=== PATIENT | female | born 1985 | race Hispanic/Latino ===

== ENCOUNTER 2017-10-02 07:10 | Emergency (ER) | payer BC ==
[2017-10-02] MEDS ORDERED: Acetaminophen 500 MG TAB ONE (07:43)
[2017-10-02] MEDS ORDERED: Ibuprofen 800 MG TAB ONE (07:43)
== END 2017-10-02 07:45 | disposition home or self-care (01) ==
LOC: ERS 07:10
DX: B34.9 Viral infection, unspecified (principal)
CPT/HCPCS: 87081; 87430; 99283

== ENCOUNTER 2019-02-23 20:40 | Emergency (ER) | payer BC ==
--- NOTE | 2019-02-23 21:03 | RAD ---
3 views second digit left hand. HISTORY: Slammed finger in door. AP, lateral and oblique views second digit left hand obtained. There is a nondisplaced fracture involving the distal phalanx second digit left hand. The fracture do es not extend into the PIP joint. IMPRESSION: Distal phalangeal fracture second digit left hand.
== END 2019-02-23 22:06 | disposition home or self-care (01) ==
LOC: ERS 20:40
DX: S62.661A Nondisplaced fracture of distal phalanx of left index finger, initial encounter for closed fracture (principal); W23.0XXA Caught, crushed, jammed, or pinched between moving objects, initial encounter

== ENCOUNTER 2019-02-28 21:00 | Emergency (ER) | payer BC ==
[2019-02-28] MEDS ORDERED: Cyclobenzaprine 10 MG TAB PO SCH (21:30)
[2019-02-28] MEDS ORDERED: Cyclobenzaprine 10 MG TAB ONE (21:49)
[2019-02-28] MEDS ORDERED: Ketorolac Tromethamine 60 MG/2 ML VIAL ONE (21:49)
== END 2019-02-28 22:34 | disposition home or self-care (01) ==
LOC: ERS 21:00
DX: M54.5 Low back pain (principal)
CPT/HCPCS: 96372; J1885

== ENCOUNTER 2021-07-02 12:41 | Emergency (ER) | payer BC ==
[2021-07-02 14:08] LABS: #Eosinphils 0.1 thou/uL (0.0-0.7); #Lymphocytes 2.2 thou/uL (1.20-3.40); %Basophils 0.3 % (0.0-1.0); %Eosinophils 0.9 % (0.0-10.0); %Lymphocytes 16.5 % (21.0-51.0); %Monocytes 7.5 % (0.0-10.0); %Neutrophils 74.8 % (42.0-75.0); Mean Corpuscular Volume 84.3 fL (78.0-98.0); Mean Platelet Volume 8.4 fL (7.4-10.4); Platelet Count 337 thou/uL (130-400); RBC Distribution Width 13.7 % (11.5-14.5); Red Blood Cell (RBC) Count 4.81 mill/uL (4.20-5.40); White Blood Cell (WBC) Count 13.4 thou/uL (4.8-10.8)
[2021-07-02 14:08] LABS: Bilirubin Negative (Negative); Blood, Urine Negative (Negative); Clarity Clear (Clear); Glucose, Urine (Dipstick) Normal (Negative); Ketone, Urine Trace mg/dL (Negative); Leukocyte Negative Leu/uL (Negative); Nitrite Negative (Negative); Protein, Urine (Dipstick) Negative (Neg-Trace); Urobilinogen Normal mg/dL (Less than 2)
[2021-07-02 14:10] LABS: Pregnancy Test - Urine (BHCG) Negative (Negative); Pregu Control Background? CLEAR/WHITE (CLR/WHITE); Pregu Control Bar Appear? YES (CONTROL BAR)
[2021-07-02 14:32] LABS: ALT (SGPT) 13 U/L (8-55); AST (SGOT) 13 U/L (5-34); Albumin 4.2 g/dL (3.5-5.0); Alkaline Phosphatase 81 U/L (40-110); Anion Gap 13 mmol/L (10-20); BUN (Urea Nitrogen) 7 mg/dL (7.0-18.7); Bilirubin, Total 0.4 mg/dL (0.2-1.2); Calc. Creatinine Clearance 0 mL/min (70-130); Carbon Dioxide 26 mmol/L (22-29); Chloride 105 mmol/L (98-107); Globulin 2.9 g/dL (2.4-3.5); Glucose 103 mg/dL (70-105); Lipase 17 U/L (8-78); Potassium 3.9 mmol/L (3.5-5.1); Protein, Total 7.1 g/dL (6.0-8.3); Sodium 140 mmol/L (136-145)
[2021-07-02] MEDS ORDERED: Morphine 4 MG/ML VIAL ONE (16:09)
[2021-07-02] MEDS ORDERED: Ondansetron PF 4 MG/2 ML Vial ONE (16:09)
[2021-07-02] MEDS ORDERED: metroNIDAZOLE 250 MG TAB ONE (18:03)
[2021-07-02] MEDS ORDERED: Ciprofloxacin 500 MG TAB ONE (18:03)
== END 2021-07-02 18:18 | disposition home or self-care (01) ==
LOC: ERS 12:41
DX: K57.32 Diverticulitis of large intestine without perforation or abscess without bleeding (principal)
CPT/HCPCS: 36415; 74177; 80053; 81003; 81025; 83690; 85025; 96374; 96375; J2270; J2405

== ENCOUNTER 2021-07-11 15:00 | Outpatient (CLI) | payer BC | END 2021-07-11 15:01 | disposition home or self-care (01) | LOC: BICULT 15:00 | PROVIDERS: ATTEND Student in an Organized Health Care Education/Training Program | DX: N92.3 Ovulation bleeding (principal); D25.9 Leiomyoma of uterus, unspecified | CPT/HCPCS: 76856 ==

== ENCOUNTER 2023-04-13 11:42 | Outpatient (CLI) | payer BC | END 2023-04-13 11:43 | disposition home or self-care (01) | LOC: BICMAMMO 11:42 | PROVIDERS: ATTEND Student in an Organized Health Care Education/Training Program | DX: Z12.31 Encounter for screening mammogram for malignant neoplasm of breast (principal) | CPT/HCPCS: 77063; 77067 ==

== ENCOUNTER 2023-09-19 21:28 | Emergency (ER) | payer BC ==
[2023-09-19] MEDS ORDERED: Fluorescein Opthalmic Strip ONE (22:26)
[2023-09-19] MEDS ORDERED: Proparacaine 0.5% Opth 15 ML BOT ONE (22:26)
== END 2023-09-19 22:45 | disposition home or self-care (01) ==
LOC: ERS 21:28
DX: H10.31 Unspecified acute conjunctivitis, right eye (principal)
CPT/HCPCS: 99282